=== PATIENT | male | born 1945 | race Two or more races ===

== ENCOUNTER 2020-06-13 09:36 | Inpatient (IN) | payer MEDICARE, OTHER ==
[~2020-06-13] VITALS: Ht 182.9 cm; Wt 90.7 kg
[2020-06-13 09:47] VITALS: BP 200/72
--- NOTE | 2020-06-13 09:55 | Emergency Room Report ---
History of Present Illness General Chief Complaint: Fever Source: Patient, Medical Record, EMS Present Illness HPI Patient is a 75-year-old male past medical history of obesity, CAD, hypertension and diabetes who presents to the ER complaining of flulike symptoms for the past 5 days. Patient complains of fever, nonproductive cough mild shortness of breath and nasal congestion. He denies any chest pain. Patient states that he has chronic lower extremity edema which is unchanged. He denies any abdominal pain, nausea or vomiting. Patient was brought in from his assisted living by EMS. He denies any sick contacts. Patient denies any smoking. Allergies: Coded Allergies: No Known Allergies (Unverified , 06/13/20) COVID-19 Screening Contact w/high risk pt: No Experienced COVID-19 symptoms?: Yes COVID-19 Testing performed CERTIFIED MEDICAL ASST: Yes COVID-19 Screening: Negative COVID-19 COVID-19 Testing Source: 06/01 @ [facility] Patient History Reviewed Nursing Documentation: PMH: Agreed; PSxH: Agreed Nursing Documentation-PMH Hx Cardiac Problems: Yes - VT, Heart Surgery, CAD, edema Hx Hypertension: Yes Hx Diabetes: Yes Review of Systems All Other Systems: negative except mentioned in HPI Physical Exam Vital Signs Date Time Temp Pulse Resp B/P (MAP) Pulse Ox O2 Delivery O2 Flow Rate FiO2 06/13/20 09:37 100.0 165/86 (112) Room Air Sp02 EP Interpretation: reviewed, normal General Appearance: no apparent distress, alert, GCS 15, non-toxic, obese Head: normocephalic, atraumatic Eyes: bilateral eye normal inspection, bilateral eye PERRL ENT: hearing grossly normal, normal pharynx, no angioedema, normal voice Neck: full range of motion, supple/symm/no masses Respiratory: other - Bibasilar rhonchi Cardiovascular #1: regular rate, rhythm Gastrointestinal: non tender, soft, non-distended, no guarding, no rebound, overweight Rectal: deferred Musculoskeletal: other - Bilateral lower extremity edema left greater than right Neurologic: estate conservator III-XII nml as tested, oriented x3 Psychiatric: no suicidal/homicidal ideation Skin: no rash Lymphatic: no adenopathy Medical Decision Making Diagnostic Impression: Primary Impression: Malignant hypertension Additional Impressions: Fever Anemia CHF (congestive heart failure) ER Course Who presents for fever and URI symptoms. Patient pancultured. Patient started on broad-spectrum antibiotics. Patient's chest x-ray demonstrates evidence for pneumonia. Covid negative. Lactate normal. Nontoxic-appearing. Patient to be admitted for further treatment and evaluation. Laboratory Tests Test 06/13/20 10:10 White Blood Count 4.8 K/UL (4.8-10.8) Red Blood Count 3.43 M/UL (4.70-6.10) L Hemoglobin 10.8 G/DL (14.2-18.0) L Hematocrit 34.7 % (42.0-52.0) L Mean Corpuscular Volume 101 FL (80-99) H Mean Corpuscular Hemoglobin 31.6 PG (27.0-31.0) H Mean Corpuscular Hemoglobin Concent 31.3 G/DL (32.0-36.0) L Red Cell Distribution Width 12.4 % (11.6-14.8) Platelet Count 172 K/UL (150-450) Mean Platelet Volume 6.5 FL (6.5-10.1) Neutrophils (%) (Auto) % (45.0-75.0) Lymphocytes (%) (Auto) % (20.0-45.0) Monocytes (%) (Auto) % (1.0-10.0) Eosinophils (%) (Auto) % (0.0-3.0) Basophils (%) (Auto) % (0.0-2.0) Neutrophils % (Manual) Pending Lymphocytes % (Manual) Pending Platelet Estimate Pending Platelet Morphology Pending Prothrombin Time 11.2 SEC (9.30-11.50) Prothrombin Time INR 1.0 (0.9-1.1) Activated Partial Thromboplast Time 30 SEC (23-33) Sodium Level 139 MMOL/L (136-145) Potassium Level 3.7 MMOL/L (3.5-5.1) Chloride Level 103 MMOL/L (98-107) Carbon Dioxide Level 29 MMOL/L (21-32) Anion Gap 7 mmol/L (5-15) Blood Urea Nitrogen 16 mg/dL (7-18) Creatinine 1.1 MG/DL (0.55-1.30) Estimated Glomerular Filtration Rate > 60 mL/min (>60) Glucose Level 61 MG/DL (74-106) L Lactic Acid Level 1.40 mmol/L (0.4-2.0) Calcium Level 8.8 MG/DL (8.5-10.1) Magnesium Level 2.2 MG/DL (1.8-2.4) Total Bilirubin 0.5 MG/DL (0.2-1.0) Aspartate Amino Transferase (AST) 26 U/L (15-37) Alanine Aminotransferase (ALT) 9 U/L (12-78) L Alkaline Phosphatase 74 U/L (46-116) Total Creatine Kinase 294 U/L (26-308) Troponin I 0.021 ng/mL (0.000-0.056) Pro-B-Type Natriuretic Peptide 2994 pg/mL (0-125) H Total Protein 7.8 G/DL (6.4-8.2) Albumin 3.6 G/DL (3.4-5.0) Globulin 4.2 g/dL Albumin/Globulin Ratio 0.9 (1.0-2.7) L Microbiology Date/Time Source Procedure Growth Status 06/13/20 10:10 Nasopharynx SARS-CoV-2 RdRp Gene Assay - Final Complete 06/13/20 10:10 Nasal Nares - Final Complete 06/13/20 10:10 Nasal Nares - Final Complete EKG Diagnostic Results Troponin ordered: Yes When was troponin ordered?: Jun 13, 2020 EKG Time: 10:25 EP Interpretation: Amber Huff MD Rate: normal Rhythm: NSR ST Segments: no acute changes ASA given to the pt in ED: No Rhythm Strip Diag. Results Rhythm Strip Time: 10:50 EP Interpretation: yes - Amber Huff MD Rate: 80 bpm Rhythm: NSR, no PVC's, no ectopy Chest X-Ray Diagnostic Results Chest X-Ray Diagnostic Results : # of Views/Limited/Complete: 1 View Indication: Shortness of Breath EP Interpretation: Yes Interpretation: no effusion, no pneumothorax, other - Bilateral lower lobe infiltrates Impression: Other - Pneumonia Electronically Signed by: Amber Huff MD Last Vital Signs Date Time Temp Pulse Resp B/P (MAP) Pulse Ox O2 Delivery O2 Flow Rate FiO2 06/13/20 09:37 100.0 165/86 (112) Room Air Disposition: ADMITTED INPATIENT Condition: Critical Physician Consult: Dr. Jorgensen at bedside Additional Instructions: Please note that this report is being documented using DRAGON technology. This can lead to erroneous entry secondary to incorrect interpretation by the dictating instrument. Amber Huff M.D. Jun 13, 2020 09:55
[2020-06-13] MEDS ORDERED: Vancomycin 1.5 GM in NS 275 ML IVPB ONE (10:15)
[2020-06-13] MEDS ORDERED: Cefepime HCl 2 GM in D5W 55 ML IVPB ONE (10:15)
--- NOTE | 2020-06-13 10:33 | Diagnostic Imaging Report ---
EXAM: XR Chest, 1 View CLINICAL HISTORY: COUGH TECHNIQUE: Frontal view of the chest. COMPARISON: None FINDINGS: Hardware: None. Lungs/pleura: Hyperinflation of the lungs which is suggestive of COPD. Lower lung opacities may represent atelectasis. Infectious/inflammatory process is not excluded. No pleural effusion or pneumothorax. Heart/mediastinum: Mild enlargement of the cardiac silhouette. Median sternotomy and CABG changes. Soft tissues: Unremarkable. Bones: No acute fracture. Generative changes of the acromioclavicular joints and spine. Upper abdomen: Normal. IMPRESSION: Hyperinflation of the lungs which is suggestive of COPD. Lower lung opacities likely represent atelectasis. Infectious/inflammatory process is not excluded.
--- NOTE | 2020-06-13 11:00 | Diagnostic Imaging Report ---
EXAM: US Duplex Bilateral Lower Extremities Veins CLINICAL HISTORY: PAIN TECHNIQUE: Real-time duplex ultrasound scan of the bilateral lower extremity veins integrating B-mode two-dimensional vascular structure, Doppler spectral analysis, color flow Doppler imaging and compression. COMPARISON: None FINDINGS: Right deep veins: Unremarkable. No DVT in the right common femoral, femoral, proximal deep femoral or popliteal veins. The veins demonstrate normal color flow, are normally compressible, with normal phasic flow and/or augmentation response. Right superficial veins: Unremarkable. No thrombus in the visualized right great saphenous vein. Left deep veins: Unremarkable. No DVT in the left common femoral, femoral, proximal deep femoral or popliteal veins. The veins demonstrate normal color flow, are normally compressible, with normal phasic flow and/or augmentation response. Left superficial veins: Unremarkable. No thrombus in the visualized left great saphenous vein. Soft tissues: No acute findings. No popliteal cyst. IMPRESSION: No deep venous thrombosis identified in either lower extremity.
[2020-06-13 11:08] LABS: HEMATOCRIT 34.7 % (42.0-52.0); HEMOGLOBIN 10.8 G/DL (14.2-18.0); MEAN CORPUSCULAR VOLUME 101 FL (80-99); PLATELET COUNT 172 K/UL (150-450); RED BLOOD COUNT 3.43 M/UL (4.70-6.10); RED CELL DISTRIBUTION WIDTH 12.4 % (11.6-14.8); WHITE BLOOD COUNT 4.8 K/UL (4.8-10.8)
[2020-06-13 11:20] LABS: ANION GAP 7 mmol/L (5-15); BLOOD UREA NITROGEN 16 mg/dL (7-18); CALCIUM 8.8 MG/DL (8.5-10.1); CARBON DIOXIDE 29 MMOL/L (21-32); CHLORIDE 103 MMOL/L (98-107); CREATININE 1.1 MG/DL (0.55-1.30); POTASSIUM 3.7 MMOL/L (3.5-5.1); SODIUM 139 MMOL/L (136-145)
[2020-06-13 11:30] LABS: ALANINE AMINOTRANSFERASE 9 U/L (12-78); ALBUMIN 3.6 G/DL (3.4-5.0); ALBUMIN/GLOBULIN RATIO 0.9 (1.0-2.7); ALKALINE PHOSPHATASE 74 U/L (46-116); ASPARTATE AMINO TRANSFERASE 26 U/L (15-37); BILIRUBIN,TOTAL 0.5 MG/DL (0.2-1.0); CREATINE KINASE 294 U/L (26-308)
[2020-06-13 11:50] VITALS: BP 157/70
[2020-06-13 12:49] LABS: APPEARANCE,URINE CLEAR; BILIRUBIN, URINE NEGATIVE (NEGATIVE); COLOR,URINE PALE YELLOW; GLUCOSE, URINE (UA) NEGATIVE (NEGATIVE); KETONES,URINE NEGATIVE (NEGATIVE); LEUKOCYTE ESTERASE ,URINE NEGATIVE (NEGATIVE); NITRITE,URINE NEGATIVE (NEGATIVE); PH,URINE 6.5 (4.5-8.0); PROTEIN,URINE NEGATIVE (NEGATIVE); UROBILINOGEN,URINE NORMAL MG/DL (0.0-1.0)
[2020-06-13] MEDS ORDERED: cefTRIAXone 1 GM in D5W 55 ML IVPB SCH (14:00)
[2020-06-13] MEDS: Azithromycin 250mg tab ORAL SCH (14:28)
[2020-06-13] MEDS: Heparin 5000 units/ml inj SUBQ SCH ×2 (14:30→20:20)
[2020-06-13 16:00] VITALS: BP 127/58
--- NOTE | 2020-06-13 17:14 | History and Physical Report ---
DATE OF ADMISSION: 06/13/2020 CHIEF COMPLAINT/REASON FOR HOSPITALIZATION: The patient is admitted with fever and cough and pneumonia. HISTORY OF PRESENT ILLNESS: The patient had low-grade fever of about 100 Fahrenheit and a dry nonproductive cough for about 2 or 3 days. Yesterday his fever went to 101.6, but he refused to go to the hospital, but he arrived today. In addition to fever, he has had a couple of loose stools. No nausea, vomiting, abdominal pain. Chest x-ray shows some mild bibasilar infiltrates versus atelectasis and hyperinflation of the lung. PAST HISTORY: Significant for coronary artery disease, status post coronary bypass, adult-onset diabetes, hypertension, chronic tremor, and a history of anxiety disorder. ALLERGIES: Antihistamines. HABITS: He is a nondrinker and nonsmoker. No use of illicit drugs. MEDICATIONS: Mirtazapine 7.5 mg at bedtime, doxazosin 4 mg at bedtime, pravastatin 20 mg at bedtime, aspirin 81 mg daily, glipizide 5 mg in the morning, losartan 50 mg twice a day, vitamin D 2000 international units daily, DSS 100 mg twice a day, Tylenol 650 mg 3 times a day, and gabapentin 100 mg 3 times a day. SYSTEM REVIEW: HEAD, EYES, EARS, NOSE, AND THROAT: Vision is corrective with eyeglasses. Hearing is good. ENDOCRINE: Long-standing diabetes, well controlled, no thyroid disease. PULMONARY: See history of present illness. No history of chronic wheezing or shortness of breath. CARDIAC: History of hypertension and coronary disease. He has had low blood pressures in the past also and medications have been titrated gradually. He has had leg edema, likely venous insufficiency. No CHF. GASTROINTESTINAL: No ulcers or GI bleeding. GENITOURINARY: No dysuria, hematuria. Has nocturia x2. Mild BPH with a decreased stream. NEUROLOGIC: No CVA or syncope. He has a history of chronic tremor. PHYSICAL EXAMINATION: GENERAL: The patient is an alert man, in no acute distress. VITAL SIGNS: Temperature 98, pulse 85, respirations 16, blood pressure 157/70. HEAD, EYES, EARS, NOSE, AND THROAT: Sclerae are nonicteric. Ocular motions intact in all directions. Oral mucosa moist. NECK: No adenopathy or thyroid enlargement. LUNGS: Clear. HEART: Regular rhythm. No murmur. ABDOMEN: Soft, without organomegaly or masses. EXTREMITIES: Trace to 1+ edema. There is some mild eczema on the ankle. NEUROLOGIC: He is alert and oriented. Cranial nerves are intact. There is a mild resting tremor. LABORATORY DATA: Pertinent labs showed white count of 4.8, hemoglobin 10.8. Electrolytes, sodium 139, potassium 3.7, chloride 103, CO2 29, BUN 16, creatinine 1.1. Troponin 0.021. IMPRESSION: 1. Community-acquired pneumonia. 2. History of coronary disease. 3. History of diabetes. 4. Episode of loose stool, possibly from medication. 5. Anemia. PLAN: We will start him on treatment for community-acquired pneumonia, give him symptomatic care. Observe closely. Geoff Jorgensen M.D. DR: HALEIGH JOB#: [id number] CC:
[2020-06-13 20:00] VITALS: BP 149/60
[2020-06-13] MEDS: Losartan 50mg tab ORAL SCH (20:19)
[2020-06-13] MEDS: Doxazosin 4mg tab ORAL SCH (20:19)
[2020-06-14] VITALS: BP 167/75
[2020-06-14 04:00] VITALS: BP 156/68
[2020-06-14] MEDS: GlipiZIDE 5mg tab ORAL SCH (06:02)
[2020-06-14 06:43] LABS: BASOPHILS % (AUTO) 0.9 % (0.0-2.0); EOSINOPHILS % (AUTO) 4.7 % (0.0-3.0); HEMATOCRIT 32.4 % (42.0-52.0); HEMOGLOBIN 10.2 G/DL (14.2-18.0); LYMPHOCYTES % (AUTO) 28.2 % (20.0-45.0); MEAN CORPUSCULAR VOLUME 100 FL (80-99); MONOCYTES % (AUTO) 15.9 % (1.0-10.0); NEUTROPHILS % (AUTO) 50.3 % (45.0-75.0); PLATELET COUNT 167 K/UL (150-450); RED BLOOD COUNT 3.24 M/UL (4.70-6.10); RED CELL DISTRIBUTION WIDTH 12.6 % (11.6-14.8); WHITE BLOOD COUNT 5.3 K/UL (4.8-10.8)
[2020-06-14 07:25] LABS: ALBUMIN 3.2 G/DL (3.4-5.0); ALBUMIN/GLOBULIN RATIO 0.9 (1.0-2.7); BILIRUBIN,TOTAL 0.5 MG/DL (0.2-1.0); CALCIUM 8.4 MG/DL (8.5-10.1); CREATININE 1.3 MG/DL (0.55-1.30); POTASSIUM 4.4 MMOL/L (3.5-5.1)
[2020-06-14 07:38] LABS: APPEARANCE,URINE CLEAR; BILIRUBIN, URINE NEGATIVE (NEGATIVE); GLUCOSE, URINE (UA) NEGATIVE (NEGATIVE); KETONES,URINE NEGATIVE (NEGATIVE); LEUKOCYTE ESTERASE ,URINE 2+ (NEGATIVE); NITRITE,URINE NEGATIVE (NEGATIVE); PH,URINE 5 (4.5-8.0); PROTEIN,URINE 1+ (NEGATIVE); UROBILINOGEN,URINE NORMAL MG/DL (0.0-1.0)
[2020-06-14 07:48] LABS: COLOR,URINE YELLOW
[2020-06-14 08:00] VITALS: BP 155/62
[2020-06-14] MEDS: Aspirin EC 81mg tab ORAL SCH (08:17)
[2020-06-14] MEDS: cefTRIAXone 1 GM in D5W 55 ML IVPB SCH (08:17)
[2020-06-14] MEDS: Azithromycin 250mg tab ORAL SCH (08:18)
[2020-06-14] MEDS: Vitamin D 1000 IU Tab ORAL SCH (08:21)
[2020-06-14] MEDS: Heparin 5000 units/ml inj SUBQ SCH ×2 (08:21→20:26)
[2020-06-14] MEDS: Losartan 50mg tab ORAL SCH ×2 (08:21→20:25)
--- NOTE | 2020-06-14 09:34 | Pulmonology Progress Note ---
Subjective ROS Limited/Unobtainable: No Constitutional: Reports: fever Respiratory: Reports: dry cough Allergies: Coded Allergies: No Known Allergies (Unverified , 06/13/20) Objective Last 24 Hour Vital Signs Date Time Temp Pulse Resp B/P (MAP) Pulse Ox O2 Delivery O2 Flow Rate FiO2 06/14/20 08:21 155/62 06/14/20 08:00 98.3 64 18 155/62 (93) 96 06/14/20 04:00 98.1 73 18 156/68 (97) 96 06/14/20 00:00 96.6 70 16 167/75 (105) 95 06/13/20 21:00 Room Air 06/13/20 20:19 151/68 06/13/20 20:00 99.1 75 16 149/60 (89) 94 06/13/20 16:00 99.2 61 18 127/58 (81) 97 06/13/20 12:45 97.9 1 15 145/88 99 Room Air 06/13/20 11:50 98.0 85 16 157/70 100 Room Air 06/13/20 10:44 200/72 06/13/20 10:41 98.0 06/13/20 09:47 76 20 Room Air 06/13/20 09:47 99.0 78 17 200/72 98 Room Air 06/13/20 09:37 99.0 76 20 165/86 (112) 97 Room Air Intake and Output 06/13/20 06/14/20 19:00 07:00 Intake Total 1055 ml 600 ml Output Total 450 ml Balance 1055 ml 150 ml Intake Oral 600 ml IV Total 555 ml Other 500 ml Output Urine Total 450 ml # Voids 1 Microbiology Date/Time Source Procedure Growth Status 06/13/20 11:45 Rectum Received 06/13/20 10:10 Nasopharynx SARS-CoV-2 RdRp Gene Assay - Final Complete 06/13/20 10:10 Nasal Nares - Final Complete 06/13/20 10:10 Nasal Nares - Final Complete Laboratory Tests 06/13/20 10:10: White Blood Count 4.8, Red Blood Count 3.43L, Hemoglobin 10.8L, Hematocrit 34.7L , Mean Corpuscular Volume 101H, Mean Corpuscular Hemoglobin 31.6H, Mean Corpuscular Hemoglobin Concent 31.3L, Red Cell Distribution Width 12.4, Platelet Count 172, Mean Platelet Volume 6.5, Neutrophils (%) (Auto) , Lymphocytes (%) (Auto) , Monocytes (%) (Auto) , Eosinophils (%) (Auto) , Basophils (%) (Auto) , Differential Total Cells Counted 100, Neutrophils % (Manual) 55, Lymphocytes % (Manual) 28, Monocytes % (Manual) 9, Eosinophils % (Manual) 8H, Basophils % (Manual) 0, Band Neutrophils 0, Platelet Estimate Adequate, Platelet Morphology Normal, Macrocytosis 1+, Prothrombin Time 11.2, Prothromb Time International Ratio 1.0, Activated Partial Thromboplast Time 30, Sodium Level 139, Potassium Level 3.7, Chloride Level 103, Carbon Dioxide Level 29, Anion Gap 7, Blood Urea Nitrogen 16, Creatinine 1.1, Estimat Glomerular Filtration Rate > 60, Glucose Level 61L, Lactic Acid Level 1.40, Calcium Level 8.8, Magnesium Level 2.2, Total Bilirubin 0.5, Aspartate Amino Transf (AST/SGOT) 26, Alanine Aminotransferase (ALT/SGPT) 9L, Alkaline Phosphatase 74, Total Creatine Kinase 294, Troponin I 0.021, Pro-B-Type Natriuretic Peptide 2994H, Total Protein 7.8, Albumin 3.6, Globulin 4.2, Albumin/Globulin Ratio 0.9L 06/13/20 11:25: Urine Color Pale yellow, Urine Appearance Clear, Urine pH 6.5, Urine Specific Weston 1.010, Urine Protein Negative, Urine Glucose (UA) Negative, Urine Ketones Negative, Urine Blood 1+H, Urine Nitrite Negative, Urine Bilirubin Negative, Urine Urobilinogen Normal, Urine Leukocyte Esterase Negative, Urine RBC 0-2H, Urine WBC 0, Urine Squamous Epithelial Cells None, Urine Bacteria None 06/14/20 06:01: POC Whole Blood Glucose 113H 06/14/20 06:15: White Blood Count 5.3, Red Blood Count 3.24L, Hemoglobin 10.2L, Hematocrit 32.4L , Mean Corpuscular Volume 100H, Mean Corpuscular Hemoglobin 31.4H, Mean Corpuscular Hemoglobin Concent 31.5L, Red Cell Distribution Width 12.6, Platelet Count 167, Mean Platelet Volume 6.4L, Neutrophils (%) (Auto) 50.3, Lymphocytes (%) (Auto) 28.2, Monocytes (%) (Auto) 15.9H, Eosinophils (%) (Auto) 4.7H, Basophils (%) (Auto) 0.9, Sodium Level 141, Potassium Level 4.4, Chloride Level 108H, Carbon Dioxide Level 25, Anion Gap 8, Blood Urea Nitrogen 21H, Creatinine 1.3, Estimat Glomerular Filtration Rate 53.5, Glucose Level 105, Calcium Level 8.4L, Total Bilirubin 0.5, Aspartate Amino Transf (AST/SGOT) 28, Alanine Aminotransferase (ALT/SGPT) 19, Alkaline Phosphatase 60, Total Protein 6.9, Albumin 3.2L, Globulin 3.7, Albumin/Globulin Ratio 0.9L 06/14/20 07:00: Urine Color Yellow, Urine Appearance Clear, Urine pH 5, Urine Specific Weston 1.015, Urine Protein 1+H, Urine Glucose (UA) Negative, Urine Ketones Negative, Urine Blood 1+H, Urine Nitrite Negative, Urine Bilirubin Negative, Urine Urobilinogen Normal, Urine Leukocyte Esterase 2+H, Urine RBC 0-2H, Urine WBC 5- 10H, Urine Squamous Epithelial Cells Occasional, Urine Bacteria Occasional Current Medications Medications (Trade) Dose Ordered Sig/Peggy Route PRN Reason Start Time Stop Time Status Last Admin Dose Admin Acetaminophen (Tylenol) 650 mg Q4H PRN ORAL Mild Pain (Pain Scale 1-3) 06/13/20 14:00 07/13/20 13:59 Aspirin (Ecotrin) 81 mg DAILY ORAL 06/14/20 09:00 07/29/20 08:59 06/14/20 08:17 Azithromycin (Zithromax) 500 mg DAILY ORAL 06/13/20 14:00 06/20/20 13:59 06/14/20 08:18 Ceftriaxone Sodium 1 gm/ Dextrose 55 ml @ 110 mls/hr DAILY IVPB 06/14/20 09:00 06/21/20 08:59 06/14/20 08:17 Doxazosin Mesylate (Cardura) 4 mg QHS ORAL 06/13/20 21:00 07/13/20 20:59 06/13/20 20:19 Furosemide (Lasix) 20 mg DAILY ORAL 06/14/20 09:00 07/14/20 08:59 06/14/20 08:19 Gabapentin (Neurontin) 100 mg THREE TIMES A DAY ORAL 06/13/20 18:00 12/14/20 17:59 06/14/20 08:18 Glipizide (Glucotrol) 5 mg ACBREAKFAST ORAL 06/14/20 06:30 07/14/20 06:29 06/14/20 06:02 Heparin Sodium (Porcine) (Heparin 5000 units/ml) 5,000 units EVERY 12 HOURS SUBQ 06/13/20 14:00 07/28/20 13:59 06/14/20 08:21 Losartan Potassium (Cozaar) 50 mg EVERY 12 HOURS ORAL 06/13/20 21:00 07/13/20 20:59 06/14/20 08:21 Magnesium Hydroxide (Mom) 30 ml DAILYPRN PRN ORAL Constipation 06/13/20 14:00 07/13/20 13:59 Mirtazapine (Remeron) 7.5 mg BEDTIME ORAL 06/13/20 21:00 09/11/20 20:59 06/13/20 20:19 Ondansetron HCl (Zofran) 4 mg EVERY 4 HOURS PRN IVP Nausea & Vomiting 06/13/20 14:00 07/13/20 13:59 Potassium Chloride (K-Dur) 20 meq DAILY ORAL 06/14/20 09:00 09/12/20 08:59 06/14/20 08:19 Pravastatin Sodium (Pravachol) 20 mg BEDTIME ORAL 06/13/20 21:00 07/13/20 20:59 06/13/20 20:19 Vitamin D (Vitamin D) 2,000 intlu DAILY ORAL 06/14/20 09:00 07/14/20 08:59 06/14/20 08:21 Assessment/Plan Assessment/Plan Pulmonary Consultation HPI: The patient is a 75 year old man from a care facility admitted with fever and cough, noted to have basal pneumonia, Covid 19 negative. Symptoms had been present for a few days, highest fever noted being 101.6, had also complained of some loose stools, denies nausea, vomiting, abdominal pa in. Denies smoking history,no h/o obstructive lung disease PAST MEDICAL HISTORY: Previous pneumonia, coronary artery disease, status post coronary bypass, adult-onset diabetes, hypertension, chronic tremor, and a history of anxiety disorder. ALLERGIES: Antihistamines. HABITS: He is a nondrinker and nonsmoker. No drug use MEDICATIONS: Noted SYSTEM REVIEW: Review of systems negative aside from above OBJECTIVE: EXAMINATION: GENERAL: WNWD, in no acute distress. VITAL SIGNS NOTED HEENT: NCAT nonicteric. EOMI. Moist mucus membranes. NECK: No adenopathy or thyroid enlargement. LUNGS: Clear. HEART: Regular rhythm. No murmur. ABDOMEN: Soft, without organomegaly or masses. EXTREMITIES: Trace edema. There is some mild eczema on the ankle. NEUROLOGIC: He is alert and oriented. Cranial nerves are intact. There is a mild resting tremor. IMPRESSION: Community acquired pneumonia. History of coronary disease. History of diabetes. 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 EKG: CATHRYNR Mathieu Lopez MD Jun 14, 2020 09:34
[2020-06-14 12:00] VITALS: BP 151/67
[2020-06-14] MEDS: Albuterol/Ipratropium 3ml neb HHN PRN (13:15)
--- NOTE | 2020-06-14 15:52 | Cardiology Report ---
APPROVED REPORT EKG Measurement Heart [id number] PA 188P41 [id number] <Conclusion> Normal sinus rhythm Normal ECG
[2020-06-14 16:00] VITALS: BP 142/57
[2020-06-14 20:00] VITALS: BP 137/59
[2020-06-14] MEDS: Doxazosin 4mg tab ORAL SCH (20:26)
[2020-06-14] MEDS: Milk of Magnesia 30ml Ud ORAL PRN (22:30)
[2020-06-15] VITALS: BP 149/62
[2020-06-15] MEDS: GlipiZIDE 5mg tab ORAL SCH (06:19)
[2020-06-15 08:00] VITALS: BP 176/73
[2020-06-15] MEDS: cefTRIAXone 1 GM in D5W 55 ML IVPB SCH (08:22)
[2020-06-15] MEDS: Heparin 5000 units/ml inj SUBQ SCH ×2 (08:22→20:06)
[2020-06-15] MEDS: Vitamin D 1000 IU Tab ORAL SCH (08:23)
[2020-06-15] MEDS: Azithromycin 250mg tab ORAL SCH (08:23)
[2020-06-15] MEDS: Aspirin EC 81mg tab ORAL SCH (08:24)
[2020-06-15] MEDS: Losartan 50mg tab ORAL SCH ×2 (08:24→20:06)
--- NOTE | 2020-06-15 08:26 | Pulmonology Progress Note ---
Subjective ROS Limited/Unobtainable: No Constitutional: Reports: fever Respiratory: Reports: dry cough Allergies: Coded Allergies: No Known Allergies (Unverified , 06/13/20) Subjective care noted events reviewed on oxygen Objective Last 24 Hour Vital Signs Date Time Temp Pulse Resp B/P (MAP) Pulse Ox O2 Delivery O2 Flow Rate FiO2 06/15/20 08:00 97.7 75 18 176/73 (107) 96 06/15/20 00:00 98.3 68 18 149/62 (91) 98 06/14/20 20:54 Room Air 06/14/20 20:25 137/59 06/14/20 20:00 97.9 63 18 137/59 (85) 98 06/14/20 19:35 71 18 97 Nasal Cannula 1.0 24 06/14/20 19:35 97 Nasal Cannula 1.0 24 06/14/20 16:00 98.9 69 18 142/57 (85) 98 06/14/20 13:25 95 1.0 24 06/14/20 13:20 67 16 98 Nasal Cannula 1.0 24 65 16 95 06/14/20 12:00 98.9 64 17 151/67 (95) 97 06/14/20 09:00 Room Air Intake and Output 06/14/20 06/15/20 19:00 07:00 Intake Total 710 ml 150 ml Balance 710 ml 150 ml Intake Oral 150 ml IV Total 110 ml Other 600 ml # Voids 3 Objective WDWN NAD reduced breath sounds bilaterally without rhonchi or wheeze [id number] without MRG NABS nontender no CCE nonfocal Microbiology Date/Time Source Procedure Growth Status 06/15/20 01:00 Nasopharynx SARS-CoV-2 RdRp Gene Assay - Final Complete 06/15/20 01:00 Nasal Not Otherwise Specified - Final Complete 06/15/20 01:00 Nasal Not Otherwise Specified - Final Complete 06/13/20 11:45 Rectum Received 06/13/20 10:10 Nasopharynx SARS-CoV-2 RdRp Gene Assay - Final Complete 06/13/20 10:10 Nasal Nares - Final Complete 06/13/20 10:10 Nasal Nares - Final Complete Current Medications Medications (Trade) Dose Ordered Sig/Peggy Route PRN Reason Start Time Stop Time Status Last Admin Dose Admin Acetaminophen (Tylenol) 650 mg Q4H PRN ORAL Mild Pain (Pain Scale 1-3) 06/13/20 14:00 07/13/20 13:59 Albuterol/ Ipratropium (Albuterol/ Ipratropium) 3 ml Q4H PRN HHN Shortness of Breath 06/14/20 09:30 06/19/20 09:29 06/14/20 13:15 Aspirin (Ecotrin) 81 mg DAILY ORAL 06/14/20 09:00 07/29/20 08:59 06/14/20 08:17 Azithromycin (Zithromax) 500 mg DAILY ORAL 06/13/20 14:00 06/20/20 13:59 06/14/20 08:18 Ceftriaxone Sodium 1 gm/ Dextrose 55 ml @ 110 mls/hr DAILY IVPB 06/14/20 09:00 06/21/20 08:59 06/14/20 08:17 Doxazosin Mesylate (Cardura) 4 mg QHS ORAL 06/13/20 21:00 07/13/20 20:59 06/14/20 20:26 Furosemide (Lasix) 20 mg DAILY ORAL 06/14/20 09:00 07/14/20 08:59 06/14/20 08:19 Gabapentin (Neurontin) 100 mg THREE TIMES A DAY ORAL 06/13/20 18:00 07/13/20 17:59 06/14/20 17:12 Glipizide (Glucotrol) 5 mg ACBREAKFAST ORAL 06/14/20 06:30 07/14/20 06:29 06/15/20 06:19 Heparin Sodium (Porcine) (Heparin 5000 units/ml) 5,000 units EVERY 12 HOURS SUBQ 06/13/20 14:00 07/28/20 13:59 06/14/20 20:26 Losartan Potassium (Cozaar) 50 mg EVERY 12 HOURS ORAL 06/13/20 21:00 07/13/20 20:59 06/14/20 20:25 Magnesium Hydroxide (Mom) 30 ml DAILYPRN PRN ORAL Constipation 06/13/20 14:00 07/13/20 13:59 06/14/20 22:30 Mirtazapine (Remeron) 7.5 mg BEDTIME ORAL 06/13/20 21:00 09/11/20 20:59 06/14/20 20:28 Ondansetron HCl (Zofran) 4 mg EVERY 4 HOURS PRN IVP Nausea & Vomiting 06/13/20 14:00 07/13/20 13:59 06/14/20 22:30 Potassium Chloride (K-Dur) 20 meq DAILY ORAL 06/14/20 09:00 09/12/20 08:59 06/14/20 08:19 Pravastatin Sodium (Pravachol) 20 mg BEDTIME ORAL 06/13/20 21:00 07/13/20 20:59 06/14/20 20:26 Vitamin D (Vitamin D) 2,000 intlu DAILY ORAL 06/14/20 09:00 07/14/20 08:59 06/14/20 08:21 Assessment/Plan Assessment/Plan Atelctasis COPD History of coronary disease. History of diabetes. 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
[2020-06-15 09:13] LABS: BASOPHILS % (AUTO) 0.6 % (0.0-2.0); EOSINOPHILS % (AUTO) 0.1 % (0.0-3.0); HEMATOCRIT 34.1 % (42.0-52.0); HEMOGLOBIN 10.8 G/DL (14.2-18.0); LYMPHOCYTES % (AUTO) 15.1 % (20.0-45.0); MEAN CORPUSCULAR VOLUME 100 FL (80-99); MONOCYTES % (AUTO) 8.6 % (1.0-10.0); NEUTROPHILS % (AUTO) 75.6 % (45.0-75.0); PLATELET COUNT 164 K/UL (150-450); RED BLOOD COUNT 3.39 M/UL (4.70-6.10); RED CELL DISTRIBUTION WIDTH 12.4 % (11.6-14.8); WHITE BLOOD COUNT 6.5 K/UL (4.8-10.8)
[2020-06-15 10:08] LABS: ANION GAP 6 mmol/L (5-15); BLOOD UREA NITROGEN 20 mg/dL (7-18); CALCIUM 8.6 MG/DL (8.5-10.1); CARBON DIOXIDE 28 MMOL/L (21-32); CHLORIDE 105 MMOL/L (98-107); CREATININE 1.1 MG/DL (0.55-1.30); FERRITIN 160 NG/ML (8-388); POTASSIUM 4.2 MMOL/L (3.5-5.1); SODIUM 138 MMOL/L (136-145)
[2020-06-15 10:40] LABS: % IRON SATURATION 12 % (15-50); IRON 37 ug/dL (50-175); TOTAL IRON BINDING CAPACITY 299 ug/dL (250-450)
[2020-06-15] MEDS: Albuterol/Ipratropium 3ml neb HHN PRN (10:48)
[2020-06-15 12:00] VITALS: BP 116/70
[2020-06-15] MEDS: Milk of Magnesia 30ml Ud ORAL PRN (14:15)
[2020-06-15 16:00] VITALS: BP 150/65
--- NOTE | 2020-06-15 16:04 | General Progress Note ---
Subjective Constitutional: Reports: weakness HEENT: Reports: no symptoms Cardiovascular: Reports: no symptoms Respiratory: Reports: cough Gastrointestinal/Abdominal: Reports: no symptoms Genitourinary: Reports: no symptoms Endocrine: Reports: no symptoms Hematologic/Lymphatic: Reports: no symptoms Allergies: Coded Allergies: No Known Allergies (Unverified , 06/13/20) Objective Last 24 Hour Vital Signs Date Time Temp Pulse Resp B/P (MAP) Pulse Ox O2 Delivery O2 Flow Rate FiO2 06/15/20 12:00 98.1 74 17 116/70 (85) 96 06/15/20 10:54 68 16 96 Nasal Cannula 1.0 24 06/15/20 10:53 96 Nasal Cannula 1.0 24 06/15/20 10:51 69 16 98 Nasal Cannula 1.0 24 68 16 96 06/15/20 09:00 Room Air 06/15/20 08:24 176/73 06/15/20 08:00 97.7 75 18 176/73 (107) 96 06/15/20 00:00 98.3 68 18 149/62 (91) 98 06/14/20 20:54 Room Air 06/14/20 20:25 137/59 06/14/20 20:00 97.9 63 18 137/59 (85) 98 06/14/20 19:35 71 18 97 Nasal Cannula 1.0 24 06/14/20 19:35 97 Nasal Cannula 1.0 24 Intake and Output 06/14/20 06/15/20 19:00 07:00 Intake Total 710 ml 150 ml Balance 710 ml 150 ml Intake Oral 150 ml IV Total 110 ml Other 600 ml # Voids 3 Laboratory Tests 06/15/20 08:20: White Blood Count 6.5, Red Blood Count 3.39L, Hemoglobin 10.8L, Hematocrit 34.1L , Mean Corpuscular Volume 100H, Mean Corpuscular Hemoglobin 31.8H, Mean Corpuscular Hemoglobin Concent 31.6L, Red Cell Distribution Width 12.4, Platelet Count 164, Mean Platelet Volume 6.8, Neutrophils (%) (Auto) 75.6H, Lymphocytes (%) (Auto) 15.1L, Monocytes (%) (Auto) 8.6, Eosinophils (%) (Auto) 0.1, Basophils (%) (Auto) 0.6, Sodium Level 138, Potassium Level 4.2, Chloride Level 105, Carbon Dioxide Level 28, Anion Gap 6, Blood Urea Nitrogen 20H, Creatinine 1.1, Estimat Glomerular Filtration Rate > 60, Glucose Level 117H, Calcium Level 8.6, Iron Level 37L, Total Iron Binding Capacity 299, Percent Iron Saturation 12L, Unsaturated Iron Binding 262, Ferritin 160, Vitamin B12 Level 219, Folate 24.2 Height (Feet): 6 Height (Inches): 0.00 Weight (Pounds): 200 Cardiovascular: normal rate Respiratory/Chest: rhonchi - bilaterally Abdomen: non tender, soft Edema: no edema noted Arm (L), no edema noted Arm (R), no edema noted Leg (L), no edema noted Leg (R), no edema noted Pedal (L), no edema noted Pedal (R), no edema noted Generalized Assessment/Plan Problem List: (1) Bronchitis ICD Codes: J40 - Bronchitis, not specified as acute or chronic SNOMED: 57177665 (2) Generalized weakness ICD Codes: R53.1 - Weakness SNOMED: 00339359 (3) Hypertension, benign ICD Codes: I10 - Essential (primary) hypertension SNOMED: 19971900 (4) Diabetes ICD Codes: E11.9 - Type 2 diabetes mellitus without complications SNOMED: 82799295 (5) CAP (community acquired pneumonia) ICD Codes: J18.9 - Pneumonia, unspecified organism SNOMED: 629771594 (6) Fever ICD Codes: R50.9 - Fever, unspecified SNOMED: 640860287 Assessment/Plan: ceftriaxone, zithromax inhalers Geoff Jorgensen MD Jun 15, 2020 16:04
[2020-06-15] MEDS ORDERED: Albuterol ud Inhalation HHN PRN (16:15)
[2020-06-15] MEDS ORDERED: Albuterol 90mcg Inhaler 8gm INH PRN (16:15)
[2020-06-15 20:00] VITALS: BP 137/77
[2020-06-15] MEDS: Doxazosin 4mg tab ORAL SCH (20:06)
[2020-06-16 04:00] VITALS: BP 143/78
[2020-06-16] MEDS: GlipiZIDE 5mg tab ORAL SCH (06:20)
[2020-06-16 07:18] LABS: BASOPHILS % (AUTO) 0.7 % (0.0-2.0); EOSINOPHILS % (AUTO) 4.7 % (0.0-3.0); HEMOGLOBIN 10.3 G/DL (14.2-18.0); LYMPHOCYTES % (AUTO) 12.4 % (20.0-45.0); MEAN CORPUSCULAR VOLUME 100 FL (80-99); MONOCYTES % (AUTO) 12.1 % (1.0-10.0); NEUTROPHILS % (AUTO) 70.1 % (45.0-75.0); PLATELET COUNT 156 K/UL (150-450); RED CELL DISTRIBUTION WIDTH 12.3 % (11.6-14.8); WHITE BLOOD COUNT 7.4 K/UL (4.8-10.8)
[2020-06-16 07:49] LABS: CALCIUM 8.2 MG/DL (8.5-10.1); CREATININE 1.2 MG/DL (0.55-1.30); POTASSIUM 4.6 MMOL/L (3.5-5.1)
[2020-06-16 08:00] VITALS: BP 130/57
--- NOTE | 2020-06-16 08:25 | Pulmonology Progress Note ---
Subjective ROS Limited/Unobtainable: No Constitutional: Reports: fever Respiratory: Reports: dry cough Allergies: Coded Allergies: No Known Allergies (Unverified , 06/13/20) Subjective care noted events reviewed on oxygen Objective Last 24 Hour Vital Signs Date Time Temp Pulse Resp B/P (MAP) Pulse Ox O2 Delivery O2 Flow Rate FiO2 06/16/20 04:00 98.7 71 17 143/78 (99) 96 06/15/20 21:36 Room Air 06/15/20 20:06 150/65 06/15/20 20:00 98.3 76 17 137/77 (97) 96 06/15/20 19:00 98 Nasal Cannula 1.0 24 06/15/20 19:00 79 18 98 Nasal Cannula 1.0 24 06/15/20 16:00 98.9 67 17 150/65 (93) 96 06/15/20 12:00 98.1 74 17 116/70 (85) 96 06/15/20 10:54 68 16 96 Nasal Cannula 1.0 24 06/15/20 10:53 96 Nasal Cannula 1.0 24 06/15/20 10:51 69 16 98 Nasal Cannula 1.0 24 68 16 96 06/15/20 09:00 Room Air Intake and Output 06/15/20 06/16/20 19:00 07:00 Intake Total 600 ml 200 ml Balance 600 ml 200 ml Intake Oral 200 ml Other 600 ml # Voids 2 Objective WDWN NAD reduced breath sounds bilaterally without rhonchi or wheeze [id number] without MRG NABS nontender no CCE nonfocal Microbiology Date/Time Source Procedure Growth Status 06/15/20 01:00 Nasopharynx SARS-CoV-2 RdRp Gene Assay - Final Complete 06/15/20 01:00 Nasal Not Otherwise Specified - Final Complete 06/15/20 01:00 Nasal Not Otherwise Specified - Final Complete 06/13/20 11:45 Rectum VRE Culture - Final NO VANCOMYCIN RESISTANT ENTEROCOCCUS ... Complete 06/13/20 11:45 Rectum Received 06/13/20 11:45 Nasal Nares MRSA Culture - Final NO METHICILLIN RESISTANT STAPH AUREUS... Complete 06/13/20 10:10 Nasopharynx SARS-CoV-2 RdRp Gene Assay - Final Complete 06/13/20 10:10 Nasal Nares - Final Complete 06/13/20 10:10 Nasal Nares - Final Complete 06/13/20 10:10 Blood Blood Culture - Preliminary NO GROWTH AFTER 48 HOURS Resulted 06/13/20 10:10 Blood Blood Culture - Preliminary NO GROWTH AFTER 48 HOURS Resulted Laboratory Tests 06/16/20 05:33: White Blood Count 7.4, Red Blood Count 3.30L, Hemoglobin 10.3L, Hematocrit 33.0L , Mean Corpuscular Volume 100H, Mean Corpuscular Hemoglobin 31.3H, Mean Corpuscular Hemoglobin Concent 31.3L, Red Cell Distribution Width 12.3, Platelet Count 156, Mean Platelet Volume 6.7, Neutrophils (%) (Auto) 70.1, Lymphocytes (%) (Auto) 12.4L, Monocytes (%) (Auto) 12.1H, Eosinophils (%) (Auto) 4.7H, Basophils (%) (Auto) 0.7, Sodium Level 138, Potassium Level 4.6, Chloride Level 103, Carbon Dioxide Level 29, Anion Gap 6, Blood Urea Nitrogen 25H, Creatinine 1.2, Estimat Glomerular Filtration Rate 58.7, Glucose Level 112H, Calcium Level 8.2L, Pro-B-Type Natriuretic Peptide 1350H, Total Protein (PEP) [Pending], Albumin (PEP) [Pending], Globulin (PEP) [Pending], Albumin/Globulin Ratio [Pending], Cxnza-9-Cigxkcnqz [Pending], Woipl-7-Nrjsqqgdh [Pending], Beta Globulins [Pending], Beta Gamma Globulin [Pending], PEP Abnormal Protein Bands [Pending], Protein Electrophoresis Interpret [Pending] 06/16/20 06:08: POC Whole Blood Glucose 118H Current Medications Medications (Trade) Dose Ordered Sig/Peggy Route PRN Reason Start Time Stop Time Status Last Admin Dose Admin Acetaminophen (Tylenol) 650 mg Q4H PRN ORAL Mild Pain (Pain Scale 1-3) 06/13/20 14:00 07/13/20 13:59 Albuterol Sulfate (Proventil) 2.5 mg Q4H PRN HHN Shortness of Breath 06/15/20 16:15 06/20/20 16:14 Albuterol/ Ipratropium (Albuterol/ Ipratropium) 3 ml Q4H PRN HHN Shortness of Breath 06/14/20 09:30 06/19/20 09:29 06/15/20 10:48 Aspirin (Ecotrin) 81 mg DAILY ORAL 06/14/20 09:00 07/29/20 08:59 06/15/20 08:24 Azithromycin (Zithromax) 500 mg DAILY ORAL 06/13/20 14:00 06/20/20 13:59 06/15/20 08:23 Budesonide/ Formoterol Fumarate (Symbicort 160/ 4.5) 2 puff TWICE A DAY INH 06/15/20 18:00 09/13/20 17:59 06/15/20 18:04 Ceftriaxone Sodium 1 gm/ Dextrose 55 ml @ 110 mls/hr DAILY IVPB 06/14/20 09:00 06/21/20 08:59 06/15/20 08:22 Doxazosin Mesylate (Cardura) 4 mg QHS ORAL 06/13/20 21:00 07/13/20 20:59 06/15/20 20:06 Furosemide (Lasix) 20 mg DAILY ORAL 06/14/20 09:00 07/14/20 08:59 06/15/20 08:23 Gabapentin (Neurontin) 100 mg THREE TIMES A DAY ORAL 06/13/20 18:00 07/13/20 17:59 06/15/20 17:35 Glipizide (Glucotrol) 5 mg ACBREAKFAST ORAL 06/14/20 06:30 07/14/20 06:29 06/16/20 06:20 Heparin Sodium (Porcine) (Heparin 5000 units/ml) 5,000 units EVERY 12 HOURS SUBQ 06/13/20 14:00 07/28/20 13:59 06/15/20 20:06 Losartan Potassium (Cozaar) 50 mg EVERY 12 HOURS ORAL 06/13/20 21:00 07/13/20 20:59 06/15/20 20:06 Magnesium Hydroxide (Mom) 30 ml DAILYPRN PRN ORAL Constipation 06/13/20 14:00 07/13/20 13:59 06/15/20 14:15 Mirtazapine (Remeron) 7.5 mg BEDTIME ORAL 06/13/20 21:00 09/11/20 20:59 06/15/20 20:05 Ondansetron HCl (Zofran) 4 mg EVERY 4 HOURS PRN IVP Nausea & Vomiting 06/13/20 14:00 07/13/20 13:59 06/14/20 22:30 Potassium Chloride (K-Dur) 20 meq DAILY ORAL 06/14/20 09:00 09/12/20 08:59 06/15/20 08:23 Pravastatin Sodium (Pravachol) 20 mg BEDTIME ORAL 06/13/20 21:00 07/13/20 20:59 06/15/20 20:06 Tiotropium [place] (Spiriva Inhaler) 1 puff DAILY INH 06/15/20 17:00 07/15/20 16:59 06/15/20 18:04 Vitamin D (Vitamin D) 2,000 intlu DAILY ORAL 06/14/20 09:00 07/14/20 08:59 06/15/20 08:23 Assessment/Plan Assessment/Plan Atelctasis COPD History of coronary disease. History of diabetes. 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
[2020-06-16] MEDS: Aspirin EC 81mg tab ORAL SCH (09:11)
[2020-06-16] MEDS: cefTRIAXone 1 GM in D5W 55 ML IVPB SCH (09:11)
[2020-06-16] MEDS: Vitamin D 1000 IU Tab ORAL SCH (09:12)
[2020-06-16] MEDS: Losartan 50mg tab ORAL SCH (09:12)
[2020-06-16] MEDS: Azithromycin 250mg tab ORAL SCH (09:12)
[2020-06-16] MEDS: Heparin 5000 units/ml inj SUBQ SCH (09:14)
[2020-06-16 12:00] VITALS: BP 149/68
[2020-06-16] MEDS ORDERED: SYMBICORT 1601 PUFFS INH (13:02)
[2020-06-16] MEDS ORDERED: SPIRIVA INHALE1 PUF1 INH (13:02)
[2020-06-16] MEDS ORDERED: ZITHROMAX250 MG ORAL (13:02)
[2020-06-16] MEDS: Albuterol/Ipratropium 3ml neb HHN PRN (14:13)
[2020-06-16 16:00] VITALS: BP 141/62
--- NOTE | 2020-06-16 16:45 | Discharge Summary ---
DATE OF ADMISSION: 06/13/2020 DATE OF DISCHARGE: 06/16/2020 PERTINENT HISTORY: The patient was admitted with fever, cough, and pneumonia. There is a history of coronary disease and diabetes. PERTINENT PHYSICAL FINDINGS: See the dictated History and Physical. HEAD, EYES, EARS, NOSE, AND THROAT: Unremarkable. LUNGS: Clear on admission. HEART: Regular rhythm. ABDOMEN: Soft. EXTREMITIES: Show trace to 1+ edema. COURSE IN THE HOSPITAL: The patient was treated for community-acquired pneumonia. He continued to have cough and mild shortness of breath. He was given bronchodilators with improvement in his situation. He also was given ceftriaxone and Zithromax and found to have a mild anemia with iron saturation of 12%, but a ferritin of 160. The patient felt better on the day of discharge. Lungs showed very faint expiratory rhonchi. Heart regular rhythm. Abdomen was soft. He was alert and ambulatory. He was discharged back to his assisted living facility in stable condition. FINAL DIAGNOSES: 1. Community-acquired pneumonia. 2. Bronchitis with bronchospasm. 3. Adult-onset diabetes. 4. History of coronary disease. 5. Hypertensive heart disease. 6. Anemia likely of chronic illness possibly iron deficiency. DISCHARGE DISPOSITION: On his prior to admission medications plus Zithromax 500 mg daily for 4 more days, Symbicort 2 puffs b.i.d., albuterol inhaler two puffs every 4 hours p.r.n., and Spiriva 1 daily. Geoff Jorgensen M.D. DR: POLY JOB#: [id number] CC:
--- NOTE | 2020-06-18 14:40 | Diagnostic Imaging Report ---
EXAM: XR Chest, 1 View CLINICAL HISTORY: cough TECHNIQUE: Frontal view of the chest. Please note that this exam was obtained on 06/16/20, but not submitted for interpretation until 06/18/20. COMPARISON: Chest x-rays dated 06/13/20 FINDINGS: Lungs: Minimal subsegmental atelectasis in the lung bases. The lungs otherwise appear clear. Pleural space: Unremarkable. The costophrenic angles are sharp. No visible pneumothorax. Heart: The cardiac silhouette appears enlarged, however is likely exaggerated by portable AP exam technique. Mediastinum: Unremarkable. Bones/joints: Status post new sternotomy. IMPRESSION: Minimal subsegmental atelectasis in the lung bases.
== END 2020-06-16 18:15 | disposition home or self-care (01) | DRG 194 ==
LOC: EDBD 09:36 → EMR 10:00 → 4E 10:25 → EDBEDREQ 11:32
DX: J18.9 Pneumonia, unspecified organism (principal); J98.11 Atelectasis; J20.9 Acute bronchitis, unspecified; I11.0 Hypertensive heart disease with heart failure; E11.9 Type 2 diabetes mellitus without complications; I50.9 Heart failure, unspecified; J44.9 Chronic obstructive pulmonary disease, unspecified; D50.9 Iron deficiency anemia, unspecified; I25.10 Atherosclerotic heart disease of native coronary artery without angina pectoris; R25.1 Tremor, unspecified; D63.8 Anemia in other chronic diseases classified elsewhere; Z88.8 Allergy status to other drugs, medicaments and biological substances; D64.9 Anemia, unspecified; F41.9 Anxiety disorder, unspecified
CPT/HCPCS: 36415; 71045; 80048; 80053; 81001; 81003; 82550; 82607; 82728; 82746; 82962; 83540; 83550; 83605; 83735; 83880; 84165; 84484; 85007; 85025; 85610; 85730; 86710; 87040; 87081; 93005; 93970; 94640; 94664; 96365; 96367; 96375; 99285; J2405; J7620; J8499; U0002